=== PATIENT | male | born 1980 | race Caucasian/White ===

== ENCOUNTER 2016-07-20 04:21 | Emergency (ER) | payer OTHER ==
[~2016-07-20 04:21] MED LIST: REMICADE10 MG/ML IV
[2016-07-20 04:39] LABS: HEMATOCRIT 41.1 % (38.0-50.0); MCH 30.8 PG (29.0-34.0); MCHC 35.5 G/DL (30.0-36.0); MCV 86.7 FL (86-99); MEAN PLAT.VOLUME 9.1 uM^3 (9.0-12.4); PLATELET COUNT 354 K/uL (156-360); RBC DIS.WIDTH-CV 12.5 % (11.8-14.6); RED BLOOD COUNT 4.74 M/uL (4.00-5.50)
[2016-07-20 04:49] LABS: AMYLASE 37 IU/L (1-118); CHLORIDE 105 mEq/L (99-109); POTASSIUM 3.1 mEq/L (3.7-5.4); SODIUM 142 mEq/L (136-147)
[2016-07-20 04:50] LABS: GLUCOSE 110 mg/dL (70-99)
[2016-07-20 04:52] LABS: ANION GAP 11 MEQ/L (2-14)
[2016-07-20 04:53] LABS: SERUM ETHYL ALCOHOL < 10 mg/dL
[2016-07-20 04:54] LABS: GFR ESTIMATE (CALCULATED) > 59 mL/min/
[2016-07-20 04:55] LABS: UREA NITROGEN (BUN) 12 mg/dL (9-23)
[2016-07-20 04:57] LABS: LIPASE 33 U/L (1.0-51.0)
[2016-07-20 05:01] LABS: TROP-I INTERPRETATION NEGATIVE; TROPONIN-I 0.03 ng/mL (0.0-0.30)
[2016-07-20 06:05] LABS: ADD MIUA? NO; BILIRUBIN NEGATIVE; BLOOD NEGATIVE; COLOR YELLOW ((YELLOW)); GLUCOSE (STRIP) NEGATIVE; KETONES NEGATIVE; LEUKOCYTES NEGATIVE; NITRITE NEGATIVE; PH, URINE 6.5 (5-8); PROTEIN (STRIP) NEGATIVE; SPECIFIC GRAVITY 1.023 (1.000-1.030); UCUL ADDED? NO; UROBILINOGEN 0.2 MG/DL (0.2-1.0)
[2016-07-20 06:14] LABS: AMPHETAMINE NEGATIVE (500 ng/mL); BARBITURATES NEGATIVE (200 ng/mL); BENZODIAZEPINES NEGATIVE (150 ng/mL); COCAINE NEGATIVE (150 ng/mL); METHADONE NEGATIVE (200 ng/mL); METHAMPHETAMINE NEGATIVE (500 ng/mL); OPIATES (MORPHINE) NEGATIVE (100 ng/mL); OXYCODONE NEGATIVE (100 ng/mL); PHENCYCLIDINE NEGATIVE (25 ng/mL); PROPOXYPHENE NEGATIVE (300 ng/mL); THC CANNABINOIDS NEGATIVE (50 ng/mL); TRICYCLIC ANTIDEPRESSANTS NEGATIVE (300 ng/mL)
[2016-07-20 06:15] LABS: INTERNAL CONTROLS VALID? YES
[2016-07-20 06:55] LABS: EOSINOPHIL (%) 0.1 % (0-5); HEMATOLOGY COMMENT 1 SMEAR COMPATIBLE; IMMATURE GRANULOCYTE (%) 0.2 % (0.0-0.7); IMMATURE GRANULOCYTE COUNT 0.4 K/uL; LYMPHOCYTE COUNT 3.2 K/uL (1.0-2.8); MONOCYTE (%) 9.9 % (3-12); MONOCYTE COUNT 1.8 K/uL (0-0.8); USER ID CCL
[2016-07-20] MEDS ORDERED: NORCO 5/3251 TABLET PO (07:13)
[2016-07-20 08:27] VITALS: BP 123/72
== END 2016-07-20 10:40 | disposition home or self-care (01) ==
LOC: TRA 04:21
PROVIDERS: Emergency Medicine
DX: S22.31XA Fracture of one rib, right side, initial encounter for closed fracture (principal); S06.0X0A Concussion without loss of consciousness, initial encounter; S16.1XXA Strain of muscle, fascia and tendon at neck level, initial encounter; E87.6 Hypokalemia; V58.0XXA Driver of pick-up truck or van injured in noncollision transport accident in nontraffic accident, initial encounter; Z72.0 Tobacco use
CPT/HCPCS: 70450; 70486; 71260; 72125; 72129; 72132; 73030; 74177; 80048; 81003; 82150; 83690; 84484; 85025; 86850; 86900; 86901; 93005; 99281; 99285; G0480; J1885; J2270; J2405; J3010; J7030